=== PATIENT | female | born 1995 | race Caucasian/White ===

== ENCOUNTER 2021-03-20 17:23 | Inpatient (IN) | payer MEDICAID ==
[~2021-03-20] VITALS: Ht 170.2 cm; Wt 54.4 kg
[2021-03-20] MEDS ORDERED: levETIRAcetam IV 1,000 MG in IV DEXTROSE 5% 100 ML IV ONE (17:45)
[2021-03-20] MEDS ORDERED: KETAMINE HCL 500 MG/10 ML INJ ONE ×2 (18:11→19:17)
[2021-03-20 18:25] LABS: CARBON DIOXIDE 26 mmol/L (21-32); CHLORIDE 95 mmol/L (98-107); CREATININE 1.2 mg/dL (0.6-1.3); GLUCOSE 136 mg/dL (74-106); UREA NITROGEN, BLOOD 15 mg/dL (7-18)
[2021-03-20 18:27] LABS: ETHANOL < 3 MG/DL (0-0)
[2021-03-20 18:28] LABS: POTASSIUM 2.8 mmol/L (3.5-5.1)
[2021-03-20] MEDS ORDERED: POTASSIUM CHLORIDE 20 MEQ TAB.PRT.SR PO ONE (18:30)
[2021-03-20 18:31] LABS: ALANINE AMINOTRANSFERASE 18 U/L (14-59); ALKALINE PHOSPHATASE 57 U/L (50-136); ASPARTATE AMINOTRANSFERASE 18 U/L (15-37); BILIRUBIN,TOTAL 0.9 mg/dL (0.2-1.0); TOTAL PROTEIN, SERUM 8.8 g/dL (6.4-8.2)
[2021-03-20 18:33] LABS: ACETAMINOPHEN < 2.0 ug/mL (10-30)
[2021-03-20] MEDS ORDERED: LORAZEPAM 2 MG/1 ML VIAL ONE ×3 (18:51→22:05)
[2021-03-20] MEDS ORDERED: NALOXONE HCL 0.4 MG/ML AMPUL ONE (18:57)
[2021-03-20 19:00] LABS: HEMATOCRIT 43.9 % (31.2-41.9); MEAN CORPUSCULAR HEMOGLOBIN 28.5 uug (24.7-32.8); MEAN CORPUSCULAR VOLUME 84.3 fL (75.5-95.3); PLATELET COUNT (AUTO) 381 K/uL (179-408)
[2021-03-20] MEDS: MAGNESIUM SULFATE/D5W 100 ML IV SCH ×2 (19:10→19:47)
[2021-03-20] MEDS ORDERED: MAGNESIUM SULFATE/D5W 100 ML ONE (19:15)
[2021-03-20] MEDS ORDERED: ONDANSETRON 4 MG/2 ML VIAL ONE ×2 (19:18→19:22)
[2021-03-20] MEDS: PROPOFOL 100 ML IV PRN (19:25)
[2021-03-20] MEDS ORDERED: KETAMINE HCL 500 MG/10 ML INJ IV ONE (19:30)
[2021-03-20] MEDS ORDERED: ONDANSETRON 4 MG/2 ML VIAL IV ONE ×2 (19:30)
[2021-03-20] MEDS ORDERED: NALOXONE HCL 0.4 MG/ML AMPUL IV ONE (19:30)
[2021-03-20] MEDS ORDERED: LORAZEPAM 2 MG/1 ML VIAL IV ONE ×3 (19:30→22:00)
[2021-03-20] MEDS ORDERED: SUCCINYLCHOLINE CHLORIDE 200 MG/10 ML VIAL IV ONE (19:30)
[2021-03-20] MEDS ORDERED: PROPOFOL 100 ML ONE (19:37)
[2021-03-20] MEDS ORDERED: VANCOMYCIN 1G/D5W 200 ML PIGGYBACK IV ONE (19:45)
[2021-03-20] MEDS ORDERED: FOSPHENYTOIN SODIUM 1,000 MG in IV NORMAL SALINE 100 ML IV ONE (19:45)
[2021-03-20] MEDS ORDERED: CEFTRIAXONE 2 G in IV DEXTROSE 5% 100 ML IV ONE (19:45)
[2021-03-20] MEDS ORDERED: SUCCINYLCHOLINE CHLORIDE 200 MG/10 ML VIAL ONE (20:00)
[2021-03-20] MEDS ORDERED: PROPOFOL 200 MG/20 ML BOTTLE ONE (20:00)
[2021-03-20] MEDS ORDERED: POTASSIUM CHLORIDE 50 ML ONE (20:27)
[2021-03-20] MEDS ORDERED: VANCOMYCIN IV 200 ML ONE (20:27)
[2021-03-20] MEDS ORDERED: CEFTRIAXONE /D5W 50ML IVPB **ER PYXIS IV ONE (20:28)
[2021-03-20] MEDS ORDERED: PHENYTOIN SODIUM IV 1,000 MG in IV NORMAL SALINE 100 ML IV ONE (20:30)
[2021-03-20] MEDS ORDERED: FAMOTIDINE. 20 MG/2 ML VIAL IV ONE ×2 (20:30→22:26)
[2021-03-20] MEDS: POTASSIUM CHLORIDE 50 ML IV SCH (20:40)
[2021-03-20 20:51] LABS: *BILIRUBIN,URIN NEGATIVE (NEGATIVE); *COLOR,URINE YELLOW (YELLOW); *KETONES,URINE 2+ (NEGATIVE); *UROBILINOGEN,URINE 0.2 E.U./dl (NORMAL); LEUKOCYTE ESTERASE ,URINE NEGATIVE (NEGATIVE); NITRITE, URINE NEGATIVE (NEGATIVE); UGLUCOSE NEGATIVE (NEGATIVE)
[2021-03-20 20:53] LABS: *BLOOD, URINE TRACE (NEGATIVE); *CLARITY,URINE HAZY (CLEAR)
[2021-03-20 21:03] LABS: BACTERIA,URINE NONE SEEN /HPF (NONE SEEN); SQUAMOUS EPITHELIAL CELL,UR MODERATE /HPF (NONE SEEN); WBC,URINE 0-3 /HPF (0-3)
[2021-03-20 21:08] LABS: *AMPHETAMINE, URINE NEGATIVE (NEGATIVE); *CANNABINOID, URINE NEGATIVE (NEGATIVE); *COCCAINE, URINE NEGATIVE (NEGATIVE); *OPIATE, URINE NEGATIVE (NEGATIVE); *PHENCYCLIDINE SCREEN,URINE NEGATIVE (NEGATIVE)
[2021-03-20 21:49] LABS: ABG BASE EXCESS 0.6 mmol/L; ABG PCO2 31.8 mmHg (35.0-45.0); ABG PH 7.478 (7.350-7.450); ABG PO2 124.5 mmHg (75.0-100.0); ABG SITE LEFT FEMORAL; ABG TOTAL HEMOGLOBIN 17.4 G/dL (12.0-16.0); COHb 0.1 % (0.5-1.5); MetHb 0.2 % (0.0-1.5); O2Hb 98.5 % (94.0-97.0); VENT MODE VENT - A/C; VT, ABG 500 mL
[2021-03-20] MEDS ORDERED: FENTANYL CITRATE 100 MCG/2 ML AMPUL IV ONE (22:00)
[2021-03-20] MEDS ORDERED: FENTANYL CITRATE 100 MCG/2 ML AMPUL ONE ×2 (22:05→23:26)
[2021-03-20] MEDS ORDERED: PHENYTOIN SODIUM 100 MG/2 ML VIAL IV ONE (22:26)
[2021-03-21] VITALS (11 sets, daily range): BP systolic 101–112; BP diastolic 62–82
[2021-03-21] MEDS ORDERED: PHENYTOIN SODIUM 250 MG/5 ML VIAL IV ONE (01:24)
[2021-03-21] MEDS ORDERED: LORAZEPAM 2 MG/1 ML VIAL ONE ×3 (01:59→06:00)
[2021-03-21] MEDS ORDERED: FENTANYL CITRATE 100 MCG/2 ML AMPUL ONE (02:17)
[2021-03-21] MEDS ORDERED: PROPOFOL 200 MG/20 ML BOTTLE ONE (02:21)
[2021-03-21] MEDS ORDERED: AZITHROMYCIN IV 500 MG in IV DEXTROSE 5% 250 ML IV ONE (03:09)
[2021-03-21] MEDS ORDERED: levETIRAcetam IV 1,000 MG in IV DEXTROSE 5% 100 ML IV ONE (03:30)
[2021-03-21] MEDS ORDERED: FENTANYL CITRATE 100 MCG/2 ML AMPUL IV ONE ×2 (03:45→04:15)
[2021-03-21] MEDS ORDERED: LORAZEPAM 2 MG/1 ML VIAL IV ONE ×3 (03:45→04:15)
[2021-03-21] MEDS ORDERED: MORPHINE SULFATE 2 MG/1 ML DISP.SYRIN IV ONE (04:00)
[2021-03-21] MEDS ORDERED: LORAZEPAM 2 MG/1 ML VIAL IM ONE (04:15)
[2021-03-21] MEDS ORDERED: FENTANYL CITRATE 100 MCG/2 ML AMPUL IM ONE (04:15)
[2021-03-21] MEDS ORDERED: MISCELLANEOUS MED IM PRN (04:15)
[2021-03-21] MEDS ORDERED: MISCELLANEOUS MED IM ONE (04:15)
[2021-03-21] MEDS ORDERED: MISCELLANEOUS MED XX ONE (04:15)
[2021-03-21] MEDS ORDERED: MORPHINE SULFATE 4 MG/1 ML DISP.SYRIN ONE (04:58)
[2021-03-21 05:32] LABS: HEMATOCRIT 47.8 % (31.2-41.9); MEAN CORPUSCULAR HEMOGLOBIN 28.5 uug (24.7-32.8); MEAN CORPUSCULAR VOLUME 85.4 fL (75.5-95.3); PLATELET COUNT (AUTO) 356 K/uL (179-408)
[2021-03-21 05:37] LABS: MAGNESIUM 2.5 mg/dL (1.8-2.4); PHOSPHOROUS 4.1 mg/dL (2.5-4.9)
[2021-03-21 05:48] LABS: POTASSIUM 2.8 mmol/L (3.5-5.1)
[2021-03-21 06:38] LABS: BAND % (MANUAL) 5 % (0-10); LYMPHOCYTES % (MANUAL) 6 % (20-40); MONOCYTES % (MANUAL) 5 % (2-10); NEUTROPHILS % (MANUAL) 83 % (42-75)
[2021-03-21] MEDS: MAGNESIUM SULFATE/D5W 100 ML IV SCH (10:39)
[2021-03-21] MEDS: PANTOPRAZOLE SODIUM 40 MG VIAL IV SCH (10:40)
[2021-03-21] MEDS: POTASSIUM CHLORIDE 50 ML IV SCH ×11 (10:40→17:35)
[2021-03-21] MEDS: PHENYTOIN SODIUM 100 MG/2 ML VIAL IV SCH ×3 (10:41→20:31)
[2021-03-21] MEDS ORDERED: PHENYTOIN SODIUM 100 MG/2 ML VIAL IV ONE ×2 (10:44→12:16)
[2021-03-21] MEDS ORDERED: POTASSIUM CHLORIDE 50 ML ONE ×5 (10:44→15:16)
[2021-03-21] MEDS ORDERED: PANTOPRAZOLE SODIUM 40 MG VIAL ONE (10:44)
[2021-03-21] MEDS ORDERED: MAGNESIUM SULFATE/D5W 100 ML ONE (10:47)
[2021-03-21] MEDS ORDERED: POTASSIUM CHLORIDE 100 ML ONE (11:06)
[2021-03-21] MEDS: AZITHROMYCIN IV 500 MG in IV DEXTROSE 5% 250 ML IV SCH (11:07)
[2021-03-21] MEDS ORDERED: AZITHROMYCIN 500MG/ D5W 250ML IVPB **ER PYXIS ONLY IV ONE (11:14)
[2021-03-21] MEDS: levETIRAcetam IV 1,000 MG in IV DEXTROSE 5% 100 ML IV SCH ×2 (11:23→23:29)
[2021-03-21] MEDS: PROPOFOL 100 ML IV PRN ×3 (11:31→16:47)
[2021-03-21] MEDS ORDERED: PROPOFOL 100 ML ONE (11:36)
[2021-03-21] MEDS ORDERED: levETIRAcetam IV 1,000 MG in IV DEXTROSE 5% 100 ML IV SCH (15:30)
[2021-03-21] MEDS: IV D5 1/2 NS 1000 ML 1,000 ML IV PRN (16:41)
[2021-03-21 16:55] LABS: ABG BASE EXCESS 2.2 mmol/L; ABG HCO3 25.5 mmol/L; ABG PH 7.468 (7.350-7.450); ABG PO2 71.7 mmHg (75.0-100.0); ABG SITE LEFT RADIAL; ABG TOTAL HEMOGLOBIN 16.3 G/dL (12.0-16.0); COHb 0.3 % (0.5-1.5); MetHb 0.3 % (0.0-1.5); O2Hb 94.9 % (94.0-97.0); VENT MODE VENT - A/C; VT, ABG 500 mL
[2021-03-21] MEDS ORDERED: AZITHROMYCIN IV 500 MG in IV DEXTROSE 5% 250 ML IV SCH ×2 (18:45→21:00)
[2021-03-21] MEDS: PIPERACILLIN SODIUM/TAZOBACTAM 3.375 G in IV DEXTROSE 5% 50 ML IV SCH (20:31)
[2021-03-21] MEDS: ENOXAPARIN SODIUM 40 MG/0.4 ML DISP.SYRIN SQ SCH (20:31)
[2021-03-21] MEDS ORDERED: CEFTRIAXONE 1 G in IV DEXTROSE 5% 50 ML IV SCH (21:00)
[2021-03-21] MEDS ORDERED: IV NORMAL SALINE 250 ML IV PRN (23:30)
[2021-03-21] MEDS ORDERED: Z GUARD REMEDY PASTE 57 GM TUBE TOP PRN (23:45)
[2021-03-22] VITALS (24 sets, daily range): BP systolic 91–123; BP diastolic 55–85
[2021-03-22] MEDS: PROPOFOL 100 ML IV PRN ×6 (00:52→23:15)
[2021-03-22] MEDS: PIPERACILLIN SODIUM/TAZOBACTAM 3.375 G in IV DEXTROSE 5% 50 ML IV SCH ×3 (02:04→14:37)
[2021-03-22] MEDS: PHENYTOIN SODIUM 100 MG/2 ML VIAL IV SCH ×3 (04:06→21:35)
[2021-03-22] MEDS: IV D5 1/2 NS 1000 ML 1,000 ML IV PRN ×2 (04:48→19:46)
[2021-03-22] MEDS ORDERED: CEFTRIAXONE 1 G in IV DEXTROSE 5% 50 ML IV SCH (06:00)
[2021-03-22 06:15] LABS: HEMATOCRIT 42.1 % (31.2-41.9); MEAN CORPUSCULAR HEMOGLOBIN 28.4 uug (24.7-32.8); PLATELET COUNT (AUTO) 237 K/uL (179-408)
[2021-03-22 07:01] LABS: CREATININE 0.8 mg/dL (0.6-1.3); MAGNESIUM 2.3 mg/dL (1.8-2.4); PHOSPHOROUS 2.4 mg/dL (2.5-4.9); POTASSIUM 3.3 mmol/L (3.5-5.1)
[2021-03-22 07:06] LABS: BILIRUBIN,TOTAL 0.7 mg/dL (0.2-1.0); CREATININE 0.8 mg/dL (0.6-1.3); POTASSIUM 3.2 mmol/L (3.5-5.1); TOTAL PROTEIN, SERUM 6.9 g/dL (6.4-8.2)
[2021-03-22 07:46] LABS: ABG BASE EXCESS 1.6 mmol/L; ABG HCO3 23.9 mmol/L; ABG PCO2 31.3 mmHg (35.0-45.0); ABG PH 7.501 (7.350-7.450); ABG PO2 56.7 mmHg (75.0-100.0); ABG SITE RIGHT RADIAL; ABG TOTAL HEMOGLOBIN 14.6 G/dL (12.0-16.0); COHb 0.5 % (0.5-1.5); O2Hb 91.7 % (94.0-97.0); VENT MODE VENT - A/C22; VT, ABG 450 mL
[2021-03-22] MEDS: Z GUARD REMEDY PASTE 57 GM TUBE TOP SCH ×2 (08:09→21:36)
[2021-03-22] MEDS: PANTOPRAZOLE SODIUM 40 MG VIAL IV SCH (08:09)
[2021-03-22] MEDS ORDERED: Z GUARD REMEDY PASTE 57 GM TUBE TOP SCH ×2 (09:00)
[2021-03-22] MEDS: POTASSIUM CHLORIDE 50 ML IV SCH ×4 (10:25→12:37)
[2021-03-22] MEDS: levETIRAcetam IV 1,000 MG in IV DEXTROSE 5% 100 ML IV SCH ×2 (10:51→21:33)
[2021-03-22] MEDS: AZITHROMYCIN IV 500 MG in IV DEXTROSE 5% 250 ML IV SCH (11:56)
[2021-03-22] MEDS ORDERED: SODIUM PHOSPHATE MM 15 MMOL in IV NORMAL SALINE 250 ML IV ONE (17:00)
[2021-03-22] MEDS: ENOXAPARIN SODIUM 40 MG/0.4 ML DISP.SYRIN SQ SCH (21:36)
[2021-03-22] MEDS: PIPERACILLIN SODIUM/TAZOBACTAM 3.375 G in IV DEXTROSE 5% 100 ML IV SCH (21:44)
[2021-03-23] VITALS (24 sets, daily range): BP systolic 92–110; BP diastolic 51–75
[2021-03-23] MEDS: PROPOFOL 100 ML IV PRN ×4 (03:36→19:52)
[2021-03-23] MEDS: PHENYTOIN SODIUM 100 MG/2 ML VIAL IV SCH ×3 (03:37→20:13)
[2021-03-23] MEDS: PIPERACILLIN SODIUM/TAZOBACTAM 3.375 G in IV DEXTROSE 5% 100 ML IV SCH ×3 (05:42→21:52)
[2021-03-23] MEDS: ACETAMINOPHEN 650 MG SUPP.RECT RC PRN ×2 (06:53→23:30)
[2021-03-23 08:04] LABS: ABG BASE EXCESS -1.1 mmol/L; ABG HCO3 21.6 mmol/L; ABG PCO2 30.5 mmHg (35.0-45.0); ABG PH 7.469 (7.350-7.450); ABG PO2 84.9 mmHg (75.0-100.0); ABG SITE RIGHT RADIAL; ABG TOTAL HEMOGLOBIN 13.4 G/dL (12.0-16.0); COHb 0.1 % (0.5-1.5); MetHb 0.3 % (0.0-1.5); O2Hb 96.6 % (94.0-97.0); VENT MODE VENT - A/C; VT, ABG 450 mL
[2021-03-23 08:57] LABS: HEMATOCRIT 41.7 % (31.2-41.9); MEAN CORPUSCULAR HEMOGLOBIN 28.3 uug (24.7-32.8); MEAN CORPUSCULAR VOLUME 88.2 fL (75.5-95.3); PLATELET COUNT (AUTO) 134 K/uL (179-408)
[2021-03-23] MEDS: PANTOPRAZOLE SODIUM 40 MG VIAL IV SCH (09:16)
[2021-03-23] MEDS: Z GUARD REMEDY PASTE 57 GM TUBE TOP SCH ×2 (09:16→20:13)
[2021-03-23] MEDS: levETIRAcetam IV 1,000 MG in IV DEXTROSE 5% 100 ML IV SCH ×2 (09:16→20:28)
[2021-03-23 09:39] LABS: CREATININE 0.7 mg/dL (0.6-1.3); MAGNESIUM 1.9 mg/dL (1.8-2.4); PHOSPHOROUS 3.4 mg/dL (2.5-4.9)
[2021-03-23 09:40] LABS: BILIRUBIN,TOTAL 0.4 mg/dL (0.2-1.0); POTASSIUM 4.1 mmol/L (3.5-5.1); TOTAL PROTEIN, SERUM 6.7 g/dL (6.4-8.2)
[2021-03-23 10:42] LABS: CREATININE 0.7 mg/dL (0.6-1.3)
[2021-03-23] MEDS ORDERED: VITAL AF 1.2 1,000 ML LIQUID GT PRN (10:45)
[2021-03-23] MEDS: AZITHROMYCIN IV 500 MG in IV DEXTROSE 5% 250 ML IV SCH (11:40)
[2021-03-23] MEDS: IV D5 1/2 NS 1000 ML 1,000 ML IV PRN (11:41)
[2021-03-23] MEDS: ENOXAPARIN SODIUM 40 MG/0.4 ML DISP.SYRIN SQ SCH (20:14)
[2021-03-23] MEDS ORDERED: levETIRAcetam 500 MG/5 ML VIAL IV ONE (20:24)
[2021-03-24] VITALS (23 sets, daily range): BP systolic 96–128; BP diastolic 50–76
[2021-03-24] MEDS: PROPOFOL 100 ML IV PRN ×2 (01:38→06:47)
[2021-03-24] MEDS: PHENYTOIN SODIUM 100 MG/2 ML VIAL IV SCH ×3 (03:19→20:25)
[2021-03-24 05:15] LABS: HEMATOCRIT 35.1 % (31.2-41.9); MEAN CORPUSCULAR HEMOGLOBIN 28.3 uug (24.7-32.8); MEAN CORPUSCULAR VOLUME 86.5 fL (75.5-95.3); PLATELET COUNT (AUTO) 232 K/uL (179-408)
[2021-03-24] MEDS: PIPERACILLIN SODIUM/TAZOBACTAM 3.375 G in IV DEXTROSE 5% 100 ML IV SCH ×3 (05:15→22:23)
[2021-03-24] MEDS: IV D5 1/2 NS 1000 ML 1,000 ML IV PRN (05:25)
[2021-03-24 05:41] LABS: MAGNESIUM 2.1 mg/dL (1.8-2.4); PHOSPHOROUS 3.7 mg/dL (2.5-4.9)
[2021-03-24 05:42] LABS: BILIRUBIN,TOTAL 0.3 mg/dL (0.2-1.0); CREATININE 0.6 mg/dL (0.6-1.3); TOTAL PROTEIN, SERUM 6.3 g/dL (6.4-8.2)
[2021-03-24 05:48] LABS: POTASSIUM 2.7 mmol/L (3.5-5.1)
[2021-03-24] MEDS ORDERED: POTASSIUM CHLORIDE 20 MEQ POWDER PACKET GT ONE (06:00)
[2021-03-24] MEDS ORDERED: POTASSIUM CHLORIDE 50 ML IV SCH ×2 (08:15→09:30)
[2021-03-24] MEDS: POTASSIUM CHLORIDE 50 ML IV SCH ×4 (08:36→10:59)
[2021-03-24] MEDS: PANTOPRAZOLE SODIUM 40 MG VIAL IV SCH (09:24)
[2021-03-24] MEDS: levETIRAcetam IV 1,000 MG in IV DEXTROSE 5% 100 ML IV SCH ×2 (09:24→21:38)
[2021-03-24] MEDS: Z GUARD REMEDY PASTE 57 GM TUBE TOP SCH ×2 (09:25→20:51)
[2021-03-24 09:50] LABS: ABG BASE EXCESS 0.1 mmol/L; ABG HCO3 23.1 mmol/L; ABG PCO2 32.2 mmHg (35.0-45.0); ABG PH 7.473 (7.350-7.450); ABG PO2 76.6 mmHg (75.0-100.0); ABG SITE RIGHT RADIAL; ABG TOTAL HEMOGLOBIN 12.6 G/dL (12.0-16.0); COHb 0.1 % (0.5-1.5); CPAP,BG 8 cmH20; MetHb 0.1 % (0.0-1.5); O2Hb 95.8 % (94.0-97.0)
[2021-03-24] MEDS ORDERED: DC PROPOFOL ONCE EXTUBATED XX PRN (10:10)
[2021-03-24] MEDS: AZITHROMYCIN IV 500 MG in IV DEXTROSE 5% 250 ML IV SCH (11:33)
[2021-03-24] MEDS: ENOXAPARIN SODIUM 40 MG/0.4 ML DISP.SYRIN SQ SCH (20:27)
[2021-03-24] MEDS ORDERED: PIPERACILLIN SODIUM/TAZO 3.375 GM VIAL ONE (22:17)
[2021-03-24] MEDS: ACETAMINOPHEN 650 MG SUPP.RECT RC PRN (23:52)
[2021-03-25] VITALS (15 sets, daily range): BP systolic 116–135; BP diastolic 65–86
[2021-03-25] MEDS ORDERED: PHENYTOIN SODIUM 100 MG/2 ML VIAL IV ONE (04:18)
[2021-03-25] MEDS: PHENYTOIN SODIUM 100 MG/2 ML VIAL IV SCH ×3 (04:57→20:27)
[2021-03-25] MEDS: PIPERACILLIN SODIUM/TAZOBACTAM 3.375 G in IV DEXTROSE 5% 100 ML IV SCH ×3 (05:01→22:07)
[2021-03-25 05:23] LABS: HEMATOCRIT 35.8 % (31.2-41.9); MEAN CORPUSCULAR HEMOGLOBIN 28.9 uug (24.7-32.8); PLATELET COUNT (AUTO) 284 K/uL (179-408)
[2021-03-25 05:28] LABS: BILIRUBIN,TOTAL 0.4 mg/dL (0.2-1.0); CREATININE 0.6 mg/dL (0.6-1.3); POTASSIUM 3.2 mmol/L (3.5-5.1)
[2021-03-25 05:35] LABS: MAGNESIUM 1.9 mg/dL (1.8-2.4); PHOSPHOROUS 3.5 mg/dL (2.5-4.9)
[2021-03-25] MEDS: PANTOPRAZOLE SODIUM 40 MG VIAL IV SCH (08:21)
[2021-03-25] MEDS: Z GUARD REMEDY PASTE 57 GM TUBE TOP SCH ×2 (08:22→20:38)
[2021-03-25] MEDS: levETIRAcetam IV 1,000 MG in IV DEXTROSE 5% 100 ML IV SCH ×2 (08:40→21:56)
[2021-03-25] MEDS: AZITHROMYCIN IV 500 MG in IV DEXTROSE 5% 250 ML IV SCH (10:09)
[2021-03-25] MEDS: POTASSIUM CHLORIDE 50 ML IV SCH ×2 (12:26→14:07)
[2021-03-25] MEDS: ENOXAPARIN SODIUM 40 MG/0.4 ML DISP.SYRIN SQ SCH (20:40)
[2021-03-26] VITALS (7 sets, daily range): BP systolic 118–128; BP diastolic 69–78
[2021-03-26] MEDS: IV D5 1/2 NS 1000 ML 1,000 ML IV PRN ×2 (04:01→14:20)
[2021-03-26] MEDS: PHENYTOIN SODIUM 100 MG/2 ML VIAL IV SCH ×3 (04:02→20:01)
[2021-03-26] MEDS: PIPERACILLIN SODIUM/TAZOBACTAM 3.375 G in IV DEXTROSE 5% 100 ML IV SCH ×3 (05:19→21:29)
[2021-03-26 05:22] LABS: HEMATOCRIT 36.8 % (31.2-41.9); MEAN CORPUSCULAR HEMOGLOBIN 28.8 uug (24.7-32.8); MEAN CORPUSCULAR VOLUME 85.3 fL (75.5-95.3); PLATELET COUNT (AUTO) 325 K/uL (179-408)
[2021-03-26 05:37] LABS: MAGNESIUM 1.8 mg/dL (1.8-2.4)
[2021-03-26] MEDS: ONDANSETRON 4 MG/2 ML VIAL IV PRN ×2 (05:39→17:52)
[2021-03-26 05:47] LABS: BILIRUBIN,TOTAL 0.5 mg/dL (0.2-1.0); CREATININE 0.6 mg/dL (0.6-1.3); TOTAL PROTEIN, SERUM 7.1 g/dL (6.4-8.2)
[2021-03-26] MEDS: PANTOPRAZOLE SODIUM 40 MG VIAL IV SCH (08:11)
[2021-03-26] MEDS: Z GUARD REMEDY PASTE 57 GM TUBE TOP SCH ×2 (08:12→20:47)
[2021-03-26] MEDS: levETIRAcetam IV 1,000 MG in IV DEXTROSE 5% 100 ML IV SCH ×2 (08:46→20:46)
[2021-03-26] MEDS ORDERED: POTASSIUM CHLORIDE 20 MEQ TAB.PRT.SR PO ONE (09:15)
[2021-03-26] MEDS: ENSURE ENLIVE (VAN) 240 ML LIQUID PO SCH (17:00)
[2021-03-26] MEDS: ENOXAPARIN SODIUM 40 MG/0.4 ML DISP.SYRIN SQ SCH (20:03)
[2021-03-27] VITALS (8 sets, daily range): BP systolic 97–128; BP diastolic 51–84
[2021-03-27] MEDS: IV D5 1/2 NS 1000 ML 1,000 ML IV PRN (03:45)
[2021-03-27] MEDS: PHENYTOIN SODIUM 100 MG/2 ML VIAL IV SCH ×3 (04:23→21:24)
[2021-03-27 05:07] LABS: HEMATOCRIT 37.2 % (31.2-41.9); MEAN CORPUSCULAR HEMOGLOBIN 28.2 uug (24.7-32.8); PLATELET COUNT (AUTO) 341 K/uL (179-408)
[2021-03-27] MEDS: PIPERACILLIN SODIUM/TAZOBACTAM 3.375 G in IV DEXTROSE 5% 100 ML IV SCH ×3 (05:17→21:26)
[2021-03-27 05:27] LABS: MAGNESIUM 1.8 mg/dL (1.8-2.4); PHOSPHOROUS 3.2 mg/dL (2.5-4.9)
[2021-03-27 05:39] LABS: ALANINE AMINOTRANSFERASE 26 U/L (14-59); ALKALINE PHOSPHATASE 48 U/L (50-136); ASPARTATE AMINOTRANSFERASE 26 U/L (15-37); BILIRUBIN,TOTAL 0.4 mg/dL (0.2-1.0); CARBON DIOXIDE 26 mmol/L (21-32); CHLORIDE 104 mmol/L (98-107); CREATININE 0.5 mg/dL (0.6-1.3); GLUCOSE 116 mg/dL (74-106); POTASSIUM 2.9 mmol/L (3.5-5.1); TOTAL PROTEIN, SERUM 6.9 g/dL (6.4-8.2); UREA NITROGEN, BLOOD 8 mg/dL (7-18)
[2021-03-27] MEDS: ENSURE ENLIVE (VAN) 240 ML LIQUID PO SCH ×3 (08:07→18:06)
[2021-03-27] MEDS: PANTOPRAZOLE SODIUM 40 MG VIAL IV SCH (08:07)
[2021-03-27] MEDS: Z GUARD REMEDY PASTE 57 GM TUBE TOP SCH ×2 (08:08→21:11)
[2021-03-27] MEDS: levETIRAcetam IV 1,000 MG in IV DEXTROSE 5% 100 ML IV SCH ×2 (09:01→21:10)
[2021-03-27] MEDS: ONDANSETRON 4 MG/2 ML VIAL IV PRN ×2 (09:15→21:13)
[2021-03-27] MEDS ORDERED: POTASSIUM CHLORIDE 20 MEQ TAB.PRT.SR PO ONE (09:30)
[2021-03-27] MEDS ORDERED: POTASSIUM CHLORIDE 20 MEQ POWDER PACKET PO ONE (09:30)
[2021-03-27] MEDS: POTASSIUM CHLORIDE 50 ML IV SCH ×2 (10:09→10:31)
[2021-03-27] MEDS: ACIDOPHILUS/BULGARICUS CHEW TAB PO SCH (21:25)
[2021-03-27] MEDS: MORPHINE SULFATE 2 MG/1 ML DISP.SYRIN IV PRN (21:30)
[2021-03-27] MEDS: ACETAMINOPHEN 650 MG SUPP.RECT RC PRN (23:23)
[2021-03-28 00:30] VITALS: BP 94/69
[2021-03-28 04:00] VITALS: BP 105/78
[2021-03-28] MEDS: PIPERACILLIN SODIUM/TAZOBACTAM 3.375 G in IV DEXTROSE 5% 100 ML IV SCH ×3 (06:30→21:47)
[2021-03-28] MEDS: PANTOPRAZOLE SODIUM 40 MG VIAL IV SCH (06:32)
[2021-03-28] MEDS: ONDANSETRON 4 MG/2 ML VIAL IV PRN ×2 (06:33→15:24)
[2021-03-28] MEDS: PHENYTOIN SODIUM 100 MG/2 ML VIAL IV SCH (06:36)
[2021-03-28 06:53] LABS: HEMATOCRIT 33.6 % (31.2-41.9); MEAN CORPUSCULAR HEMOGLOBIN 28.6 uug (24.7-32.8); MEAN CORPUSCULAR VOLUME 85.5 fL (75.5-95.3); PLATELET COUNT (AUTO) 321 K/uL (179-408)
[2021-03-28] MEDS: MORPHINE SULFATE 2 MG/1 ML DISP.SYRIN IV PRN (06:54)
[2021-03-28 07:23] LABS: ALANINE AMINOTRANSFERASE 35 U/L (14-59); ALKALINE PHOSPHATASE 47 U/L (50-136); ASPARTATE AMINOTRANSFERASE 27 U/L (15-37); BILIRUBIN,TOTAL 0.4 mg/dL (0.2-1.0); CARBON DIOXIDE 22 mmol/L (21-32); CHLORIDE 110 mmol/L (98-107); CREATININE 0.5 mg/dL (0.6-1.3); GLUCOSE 102 mg/dL (74-106); TOTAL PROTEIN, SERUM 5.8 g/dL (6.4-8.2); UREA NITROGEN, BLOOD 7 mg/dL (7-18)
[2021-03-28] MEDS: ACIDOPHILUS/BULGARICUS CHEW TAB PO SCH ×2 (08:35→20:26)
[2021-03-28] MEDS: ENSURE ENLIVE (VAN) 240 ML LIQUID PO SCH ×3 (08:36→18:05)
[2021-03-28] MEDS: Z GUARD REMEDY PASTE 57 GM TUBE TOP SCH ×2 (08:36→20:34)
[2021-03-28] MEDS: levETIRAcetam IV 1,000 MG in IV DEXTROSE 5% 100 ML IV SCH ×2 (08:40→20:25)
[2021-03-28 09:30] LABS: POTASSIUM 2.3 mmol/L (3.5-5.1)
[2021-03-28 10:57] LABS: HEMATOCRIT 40.2 % (31.2-41.9); MEAN CORPUSCULAR HEMOGLOBIN 28.3 uug (24.7-32.8); MEAN CORPUSCULAR VOLUME 84.8 fL (75.5-95.3); PLATELET COUNT (AUTO) 421 K/uL (179-408)
[2021-03-28 11:08] VITALS: BP 114/86
[2021-03-28] MEDS ORDERED: POTASSIUM CHLORIDE 20 MEQ TAB.PRT.SR PO ONE (11:30)
[2021-03-28] MEDS ORDERED: POTASSIUM CHLORIDE 20 MEQ POWDER PACKET PO ONE (12:30)
[2021-03-28] MEDS: PHENYTOIN 100 MG/4 ML UDC PO SCH ×2 (14:34→21:47)
[2021-03-28 15:29] VITALS: BP 130/84
[2021-03-28] MEDS: ACETAMINOPHEN 325 MG TABLET PO PRN (16:32)
[2021-03-28 20:49] VITALS: BP 130/82
[2021-03-29] VITALS (7 sets, daily range): BP systolic 105–142; BP diastolic 65–79
[2021-03-29] MEDS: ONDANSETRON 4 MG/2 ML VIAL IV PRN ×2 (02:22→13:06)
[2021-03-29] MEDS: LORAZEPAM 2 MG/1 ML VIAL IV PRN ×3 (02:45→20:16)
[2021-03-29] MEDS: IV D5 1/2 NS 1000 ML 1,000 ML IV PRN (04:33)
[2021-03-29] MEDS: PIPERACILLIN SODIUM/TAZOBACTAM 3.375 G in IV DEXTROSE 5% 100 ML IV SCH ×3 (05:17→21:19)
[2021-03-29] MEDS: PHENYTOIN 100 MG/4 ML UDC PO SCH ×3 (05:42→22:00)
[2021-03-29 07:25] LABS: HEMATOCRIT 41.5 % (31.2-41.9); MEAN CORPUSCULAR HEMOGLOBIN 27.9 uug (24.7-32.8); MEAN CORPUSCULAR VOLUME 85.1 fL (75.5-95.3); PLATELET COUNT (AUTO) 378 K/uL (179-408)
[2021-03-29 08:00] LABS: CARBON DIOXIDE 24 mmol/L (21-32); CHLORIDE 104 mmol/L (98-107); CREATININE 0.6 mg/dL (0.6-1.3); GLUCOSE 91 mg/dL (74-106); MAGNESIUM 2.2 mg/dL (1.8-2.4); PHOSPHOROUS 4.2 mg/dL (2.5-4.9); POTASSIUM 2.8 mmol/L (3.5-5.1); UREA NITROGEN, BLOOD 10 mg/dL (7-18)
[2021-03-29] MEDS: ACETAMINOPHEN 650 MG SUPP.RECT RC PRN ×2 (08:00→18:06)
[2021-03-29] MEDS: levETIRAcetam IV 1,000 MG in IV DEXTROSE 5% 100 ML IV SCH ×2 (08:52→20:17)
[2021-03-29] MEDS: PANTOPRAZOLE SODIUM 40 MG VIAL IV SCH (08:53)
[2021-03-29] MEDS: ENSURE ENLIVE (VAN) 240 ML LIQUID PO SCH ×3 (08:53→16:34)
[2021-03-29] MEDS: ACIDOPHILUS/BULGARICUS CHEW TAB PO SCH ×2 (08:53→21:00)
[2021-03-29] MEDS: Z GUARD REMEDY PASTE 57 GM TUBE TOP SCH ×2 (08:54→20:22)
[2021-03-29] MEDS: POTASSIUM CHLORIDE 50 ML IV SCH ×4 (09:10→11:43)
[2021-03-29 12:29] LABS: *BILIRUBIN,URIN NEGATIVE (NEGATIVE); *BLOOD, URINE 3+ (NEGATIVE); *CLARITY,URINE TURBID (CLEAR); *COLOR,URINE YELLOW (YELLOW); *KETONES,URINE TRACE (NEGATIVE); *UROBILINOGEN,URINE 0.2 E.U./dl (NORMAL); LEUKOCYTE ESTERASE ,URINE NEGATIVE (NEGATIVE); NITRITE, URINE NEGATIVE (NEGATIVE); UGLUCOSE NEGATIVE (NEGATIVE)
[2021-03-29] MEDS: MORPHINE SULFATE 2 MG/1 ML DISP.SYRIN IV PRN (13:07)
[2021-03-29] MEDS ORDERED: MORPHINE SULFATE 2 MG/1 ML DISP.SYRIN IV STA (15:04)
[2021-03-29 18:28] LABS: BACTERIA,URINE NONE SEEN /HPF (NONE SEEN); RBC,URINE 50-80 /HPF (0-3); SQUAMOUS EPITHELIAL CELL,UR FEW /HPF (NONE SEEN); URINE AMORPHOUS URATE MANY /HPF; WBC,URINE 0-3 /HPF (0-3)
[2021-03-30] VITALS: BP 117/70
[2021-03-30] MEDS: ACETAMINOPHEN 650 MG SUPP.RECT RC PRN ×2 (00:33→09:28)
[2021-03-30] MEDS: IV D5 1/2 NS 1000 ML 1,000 ML IV PRN ×2 (02:29→14:13)
[2021-03-30 04:00] VITALS: BP 116/77
[2021-03-30] MEDS: PHENYTOIN 100 MG/4 ML UDC PO SCH ×2 (04:26→13:22)
[2021-03-30] MEDS: MORPHINE SULFATE 2 MG/1 ML DISP.SYRIN IV PRN (04:27)
[2021-03-30] MEDS: LORAZEPAM 2 MG/1 ML VIAL IV PRN ×2 (04:39→14:13)
[2021-03-30] MEDS: PIPERACILLIN SODIUM/TAZOBACTAM 3.375 G in IV DEXTROSE 5% 100 ML IV SCH ×3 (05:29→21:55)
[2021-03-30 07:51] LABS: HEMATOCRIT 37.4 % (31.2-41.9); MEAN CORPUSCULAR HEMOGLOBIN 28.4 uug (24.7-32.8); MEAN CORPUSCULAR VOLUME 85.2 fL (75.5-95.3); PLATELET COUNT (AUTO) 403 K/uL (179-408)
[2021-03-30 07:57] LABS: BILIRUBIN,TOTAL 0.4 mg/dL (0.2-1.0); CREATININE 0.7 mg/dL (0.6-1.3); MAGNESIUM 2.1 mg/dL (1.8-2.4); PHOSPHOROUS 3.2 mg/dL (2.5-4.9); POTASSIUM 3.8 mmol/L (3.5-5.1); TOTAL PROTEIN, SERUM 6.9 g/dL (6.4-8.2)
[2021-03-30] MEDS: ACIDOPHILUS/BULGARICUS CHEW TAB PO SCH ×2 (08:07→21:00)
[2021-03-30] MEDS: ENSURE ENLIVE (VAN) 240 ML LIQUID PO SCH ×3 (08:07→17:04)
[2021-03-30] MEDS: PANTOPRAZOLE SODIUM 40 MG VIAL IV SCH (08:07)
[2021-03-30] MEDS: Z GUARD REMEDY PASTE 57 GM TUBE TOP SCH ×2 (08:08→21:05)
[2021-03-30] MEDS: levETIRAcetam IV 1,000 MG in IV DEXTROSE 5% 100 ML IV SCH (08:42)
[2021-03-30 11:50] VITALS: BP 116/72
[2021-03-30] MEDS ORDERED: IOHEXOL 300MG/ML 100 ML INFUS..BTL ONE (16:30)
[2021-03-30] MEDS ORDERED: SWABABLE VALVE TRANSFER SET EA MC ONE (16:30)
[2021-03-30] MEDS ORDERED: IV NORMAL SALINE 250 ML IV ONE (16:31)
[2021-03-30] MEDS: levETIRAcetam IV 1,500 MG in IV DEXTROSE 5% 100 ML IV SCH (17:04)
[2021-03-30] MEDS ORDERED: PHENYTOIN SODIUM IV 500 MG in IV NORMAL SALINE 50 ML IV STA (19:34)
[2021-03-30] MEDS ORDERED: PHENYTOIN SODIUM 250 MG/5 ML VIAL IV ONE (19:51)
[2021-03-30 20:47] VITALS: BP 121/76
[2021-03-30] MEDS ORDERED: PHENYTOIN SODIUM 100 MG/2 ML VIAL IV SCH (21:00)
[2021-03-30] MEDS: PHENYTOIN SODIUM 100 MG/2 ML VIAL IV SCH (23:26)
[2021-03-31 00:05] VITALS: BP 101/52
[2021-03-31] MEDS: MORPHINE SULFATE 2 MG/1 ML DISP.SYRIN IV PRN ×3 (01:26→21:26)
[2021-03-31] MEDS: levETIRAcetam IV 1,500 MG in IV DEXTROSE 5% 100 ML IV SCH ×2 (04:18→17:20)
[2021-03-31 04:25] VITALS: BP 95/49
[2021-03-31] MEDS: IV D5 1/2 NS 1000 ML 1,000 ML IV PRN (04:32)
[2021-03-31] MEDS ORDERED: MEROPENEM 1 G in IV NORMAL SALINE 100 ML IV SCH ×2 (06:00→16:00)
[2021-03-31] MEDS ORDERED: VANCOMYCIN IV 1,000 MG in IV DEXTROSE 5% 250 ML IV ONE (06:00)
[2021-03-31] MEDS ORDERED: ACYCLOVIR IV 500 MG in IV DEXTROSE 5% 100 ML IV SCH ×2 (06:00→08:00)
[2021-03-31] MEDS ORDERED: BENZOCAINE/MENTH/CETYLPYRD LOZENGE MM PRN (07:00)
[2021-03-31 07:02] LABS: HEMATOCRIT 35.1 % (31.2-41.9); MEAN CORPUSCULAR HEMOGLOBIN 28.7 uug (24.7-32.8); MEAN CORPUSCULAR VOLUME 84.5 fL (75.5-95.3); PLATELET COUNT (AUTO) 377 K/uL (179-408)
[2021-03-31 07:39] LABS: CREATININE 0.6 mg/dL (0.6-1.3); PHOSPHOROUS 3.7 mg/dL (2.5-4.9)
[2021-03-31] MEDS: PHENYTOIN SODIUM 100 MG/2 ML VIAL IV SCH ×2 (07:50→13:49)
[2021-03-31] MEDS ORDERED: MEROPENEM 1 G in IV NORMAL SALINE 100 ML IV ONE (08:00)
[2021-03-31 08:21] LABS: POTASSIUM 2.5 mmol/L (3.5-5.1)
[2021-03-31] MEDS: ACIDOPHILUS/BULGARICUS CHEW TAB PO SCH ×2 (09:00→21:00)
[2021-03-31] MEDS: ENSURE ENLIVE (VAN) 240 ML LIQUID PO SCH ×3 (09:00→16:48)
[2021-03-31] MEDS: PANTOPRAZOLE SODIUM 40 MG VIAL IV SCH (09:49)
[2021-03-31] MEDS ORDERED: POTASSIUM CHLORIDE 50 ML IV SCH (10:00)
[2021-03-31] MEDS ORDERED: POTASSIUM CHLORIDE 20 MEQ TAB.PRT.SR PO ONE (10:00)
[2021-03-31] MEDS: Z GUARD REMEDY PASTE 57 GM TUBE TOP SCH ×2 (10:05→21:25)
[2021-03-31] MEDS: VANCOMYCIN IV 1,250 MG in IV DEXTROSE 5% 250 ML IV ONE ×2 (10:44→12:48)
[2021-03-31] MEDS: ACETAMINOPHEN 325 MG TABLET PO PRN (12:46)
[2021-03-31] MEDS: levoFLOXacin 500 MG/D5W 500 MG in PREMIXED 1 EACH IV SCH (13:48)
[2021-03-31] MEDS: LORAZEPAM 2 MG/1 ML VIAL IV PRN (15:56)
[2021-03-31 16:00] VITALS: BP 107/62
[2021-03-31] MEDS ORDERED: GADOTERATE MEGLUMINE 5 MMOL/10 ML VIAL IV ONE (16:59)
[2021-03-31] MEDS ORDERED: VANCOMYCIN IV 1,000 MG in IV DEXTROSE 5% 250 ML IV SCH (17:00)
[2021-03-31 20:00] VITALS: BP 109/64
[2021-04-01] VITALS: BP 119/74
[2021-04-01] MEDS: MORPHINE SULFATE 2 MG/1 ML DISP.SYRIN IV PRN ×4 (02:08→22:50)
[2021-04-01 04:00] VITALS: BP 110/60
[2021-04-01] MEDS: levETIRAcetam IV 1,500 MG in IV DEXTROSE 5% 100 ML IV SCH ×2 (05:06→21:33)
[2021-04-01] MEDS ORDERED: PANTOPRAZOLE SODIUM 40 MG TABLET.DR PO SCH (07:00)
[2021-04-01 07:37] LABS: HEMATOCRIT 33.2 % (31.2-41.9); MEAN CORPUSCULAR HEMOGLOBIN 28.9 uug (24.7-32.8); MEAN CORPUSCULAR VOLUME 85.1 fL (75.5-95.3); PLATELET COUNT (AUTO) 321 K/uL (179-408)
[2021-04-01 08:08] LABS: CARBON DIOXIDE 28 mmol/L (21-32); CHLORIDE 103 mmol/L (98-107); CREATININE 0.5 mg/dL (0.6-1.3); GLUCOSE 97 mg/dL (74-106); MAGNESIUM 2.1 mg/dL (1.8-2.4); PHOSPHOROUS 3.7 mg/dL (2.5-4.9); POTASSIUM 2.8 mmol/L (3.5-5.1); UREA NITROGEN, BLOOD 2 mg/dL (7-18)
[2021-04-01] MEDS: ACIDOPHILUS/BULGARICUS CHEW TAB PO SCH ×3 (08:54→21:34)
[2021-04-01] MEDS: ENSURE ENLIVE (VAN) 240 ML LIQUID PO SCH ×3 (08:55→16:46)
[2021-04-01] MEDS: Z GUARD REMEDY PASTE 57 GM TUBE TOP SCH ×2 (08:55→21:34)
[2021-04-01] MEDS: POTASSIUM CHLORIDE 10 MEQ TAB.PRT.SR PO SCH ×2 (11:48→15:17)
[2021-04-01 12:00] VITALS: BP 116/66
[2021-04-01] MEDS: levoFLOXacin 500 MG/D5W 500 MG in PREMIXED 1 EACH IV SCH (15:13)
[2021-04-01 16:00] VITALS: BP 106/64
[2021-04-01 20:27] VITALS: BP 110/68
[2021-04-01] MEDS ORDERED: RING10003 IV (21:46)
[2021-04-01] MEDS ORDERED: LEVE1000 PO (21:46)
[2021-04-01] MEDS ORDERED: ACET325T53 PO (21:46)
[2021-04-01] MEDS ORDERED: PANT40TA49 PO (21:46)
[2021-04-01] MEDS ORDERED: ACID1TAB4 PO (21:46)
[2021-04-01] MEDS ORDERED: CEFT2PIG IV (21:46)
== END 2021-04-01 23:40 | DRG 720 ==
LOC: ER 17:26 → TRANSITION 23:06 → UNDOADMIN 03-21 03:03 → TRANSITION 03-21 03:03 → CCU 03-21 15:44 → TELE3 03-27 13:27
PROC: 0BH17EZ Insertion of Endotracheal Airway into Trachea, Via Natural or Artificial Opening (ICD-10-PCS; principal; 2021-03-20)
PROC: 5A1945Z Respiratory Ventilation, 24-96 Consecutive Hours (ICD-10-PCS; 2021-03-20)
DX: A41.9 Sepsis, unspecified organism (principal); J96.01 Acute respiratory failure with hypoxia; J69.0 Pneumonitis due to inhalation of food and vomit; G92.8 Other toxic encephalopathy; J15.1 Pneumonia due to Pseudomonas; G03.9 Meningitis, unspecified; G40.901 Epilepsy, unspecified, not intractable, with status epilepticus; E87.6 Hypokalemia; H70.90 Unspecified mastoiditis, unspecified ear; E88.09 Other disorders of plasma-protein metabolism, not elsewhere classified; F19.10 Other psychoactive substance abuse, uncomplicated; Z20.822 Contact with and (suspected) exposure to COVID-19
CPT/HCPCS: 36415; 36556; 36600; 51702; 70030-TC; 70450; 70470; 70553; 71045; 80299; 83605; 83735; 84100; 84132; 84146; 84478; 85025; 85730; 86140; 86803; 87040; 87070; 87077; 87086; 87400; 87806; 93005; 94003; 97161; A4663; A9575; C1758; C9113; G0378; G0480; J0133; J0330; J0456; J0696; J1165; J1650; J1953; J1956; J2060; J2185; J2270; J2310; J2405; J2543; J3010; J3370; J3475; J3480; J3490; J7030; J7050; J7060; Q9967; U0003